=== PATIENT | female | born 1995 | race Caucasian/White ===

== ENCOUNTER → 2022-10-03 | Outpatient (CLI) | payer OTHER ==
[~2022-10-03] MED LIST: HYDACE5 PO; IBUP600 PO; PENVK500 PO; PRENATAL TABLE1 EAC9 PO; RXHYDACE PO; [UNRECOGNIZED DRUG - OTHER]; [UNRECOGNIZED DRUG - REMARK]
[2022-10-03 13:03] LABS: BASOPHILS ABSOLUTE AUTO 0.03 K/mm3 (0.00-0.23); BASOPHILS PERCENT AUTO 0 % (0-2); EOSINOPHILS ABSOLUTE AUTO 0.09 K/mm3 (0.00-0.68); EOSINOPHILS PERCENT AUTO 1 % (0-6); Hematocrit 41.9 % (33.0-51.0); Hemoglobin 14.6 g/dL (11.5-16.0); IMMATURE GRAN ABSOLUTE AUTO 0.03 K/mm3 (0.00-0.10); IMMATURE GRAN PERCENT AUTO 0 % (0-1); LYMPHOCYTES ABSOLUTE AUTO 2.18 K/mm3 (0.84-5.20); LYMPHOCYTES PERCENT AUTO 22 % (21-46); MONOCYTES ABSOLUTE AUTO 0.66 K/mm3 (0.16-1.47); MONOCYTES PERCENT AUTO 7 % (4-13); Mean Corpuscular HGB 31.8 pg (26.0-34.0); Mean Corpuscular HGB Conc 34.8 g/dL (31.5-36.5); Mean Corpuscular Volume 91 fL (80-100); Mean Platelet Volume 9.2 fL (9.1-12.4); NEUTROPHILS ABSOLUTE AUTO 6.76 K/mm3 (1.96-9.15); NEUTROPHILS PERCENT AUTO 69 % (41-73); Platelet Count 307 K/mm3 (150-400); RDW Coefficient Variation 12.2 % (11.7-14.2); RDW Standard Deviation 40.6 fL (35.1-46.3); Red Blood Cell Count 4.59 M/mm3 (3.80-5.20); White Blood Cell Count 9.75 K/mm3 (4.00-11.30)
[2022-10-03 13:13] LABS: Albumin, Blood 3.8 g/dL (3.4-5.0); Albumin/Globulin Ratio 1.2 (0.8-1.8); Bilirubin, Total 0.8 mg/dL (0.1-1.0); Bun/Creatinine Ratio 13.6 (12.0-20.0); Calcium, Blood 8.7 mg/dL (8.5-10.1); Creatinine, Blood 0.88 mg/dL (0.40-1.00); Globulin, Blood 3.1 g/dL (2.2-4.0); Potassium, Blood 3.8 mmol/L (3.5-5.5); Total Protein, Blood 6.9 g/dL (6.4-8.2)
== END | disposition home or self-care (01) ==
LOC: LAB 12:59 → LAB SHORT 12:59
PROVIDERS: Chiropractor
DX: R07.89 Other chest pain (principal)
CPT/HCPCS: 80053; 84443; 84484; 85025; 85379

== ENCOUNTER 2023-02-03 11:53 | Emergency (ER) | payer OTHER ==
[~2023-02-03] VITALS: Ht 172.7 cm; Wt 62.1 kg
[2023-02-03 12:49] VITALS: BP 130/93
[2023-02-03 13:15] LABS: BASOPHILS ABSOLUTE AUTO 0.04 K/mm3 (0.00-0.23); BASOPHILS PERCENT AUTO 0 % (0-2); EOSINOPHILS ABSOLUTE AUTO 0.03 K/mm3 (0.00-0.68); EOSINOPHILS PERCENT AUTO 0 % (0-6); Hematocrit 44.9 % (33.0-51.0); Hemoglobin 16.1 g/dL (11.5-16.0); IMMATURE GRAN ABSOLUTE AUTO 0.07 K/mm3 (0.00-0.10); IMMATURE GRAN PERCENT AUTO 0 % (0-1); LYMPHOCYTES ABSOLUTE AUTO 1.77 K/mm3 (0.84-5.20); LYMPHOCYTES PERCENT AUTO 10 % (21-46); MONOCYTES ABSOLUTE AUTO 1.03 K/mm3 (0.16-1.47); MONOCYTES PERCENT AUTO 6 % (4-13); Mean Corpuscular HGB 31.6 pg (26.0-34.0); Mean Corpuscular HGB Conc 35.9 g/dL (31.5-36.5); Mean Corpuscular Volume 88 fL (80-100); Mean Platelet Volume 9.4 fL (9.1-12.4); NEUTROPHILS PERCENT AUTO 84 % (41-73); Platelet Count 361 K/mm3 (150-400); RDW Coefficient Variation 11.8 % (11.7-14.2); RDW Standard Deviation 38.1 fL (35.1-46.3); White Blood Cell Count 18.14 K/mm3 (4.00-11.30)
[2023-02-03 13:54] LABS: Albumin, Blood 4.2 g/dL (3.4-5.0); Albumin/Globulin Ratio 1.2 (0.8-1.8); Bilirubin, Total 1.1 mg/dL (0.1-1.0); Bun/Creatinine Ratio 14.8 (12.0-20.0); Calcium, Blood 9.4 mg/dL (8.5-10.1); Creatinine, Blood 0.74 mg/dL (0.40-1.00); Globulin, Blood 3.5 g/dL (2.2-4.0); Potassium, Blood 3.7 mmol/L (3.5-5.5); Total Protein, Blood 7.7 g/dL (6.4-8.2)
[2023-02-03 15:38] LABS: Source, Urine Clean Catch
[2023-02-03 15:42] LABS: Appearance, Urine Clear (Clear); Bilirubin, Urine Neg (Neg); Blood, Urine Neg (Neg); Color, Urine Yellow (P-Yellow); Glucose Qualitative, Urine Neg (Neg); Ketones, Urine 4+ (Neg); Leukocyte Esterase, Urine Neg (Neg); Nitrite, Urine Neg (Neg); Protein, Urine 1+ (Neg); Specific Gravity, Urine 1.015 (1.003-1.022); Urobilinogen, Urine NORM (Normal); pH, Urine 6.5 (5.0-8.0)
[2023-02-03] MEDS ORDERED: DICLEGIS DR 101 EAC1 PO (18:42)
[2023-02-03] MEDS ORDERED: BENADRYL25 MG PO (18:42)
[2023-02-03] MEDS ORDERED: METO10 PO (18:42)
== END 2023-02-03 18:56 | disposition home or self-care (01) ==
LOC: ER 11:53
PROVIDERS: Student in an Organized Health Care Education/Training Program
DX: O21.9 Vomiting of pregnancy, unspecified (principal); O99.891 Other specified diseases and conditions complicating pregnancy; R10.13 Epigastric pain; Z3A.01 Less than 8 weeks gestation of pregnancy
CPT/HCPCS: 76705; 76801; 76817; 80053; 83690; 84702; 85025; 96361; 96374; 96375; 99284-25; A9270; J1200; J2405; J2765; J7030

== ENCOUNTER 2023-04-07 13:57 | Emergency (ER) | payer OTHER ==
[~2023-04-07] VITALS: Ht 172.7 cm; Wt 63.5 kg
[~2023-04-07 13:57] MED LIST changes: +BENADRYL25 MG PO; +DICLEGIS DR 101 EAC1 PO; +METO10 PO
[2023-04-07] MEDS ORDERED: Phenergan25 M1 PO (14:08)
[2023-04-07 14:29] LABS: BASOPHILS ABSOLUTE AUTO 0.03 K/mm3 (0.00-0.23); BASOPHILS PERCENT AUTO 0 % (0-2); EOSINOPHILS ABSOLUTE AUTO 0.03 K/mm3 (0.00-0.68); EOSINOPHILS PERCENT AUTO 0 % (0-6); Hematocrit 42.7 % (33.0-51.0); Hemoglobin 14.8 g/dL (11.5-16.0); IMMATURE GRAN PERCENT AUTO 1 % (0-1); LYMPHOCYTES ABSOLUTE AUTO 1.04 K/mm3 (0.84-5.20); LYMPHOCYTES PERCENT AUTO 6 % (21-46); MONOCYTES ABSOLUTE AUTO 0.58 K/mm3 (0.16-1.47); MONOCYTES PERCENT AUTO 4 % (4-13); Mean Corpuscular HGB 31.4 pg (26.0-34.0); Mean Corpuscular HGB Conc 34.7 g/dL (31.5-36.5); Mean Corpuscular Volume 91 fL (80-100); Mean Platelet Volume 9.8 fL (9.1-12.4); NEUTROPHILS ABSOLUTE AUTO 14.83 K/mm3 (1.96-9.15); NEUTROPHILS PERCENT AUTO 89 % (41-73); Platelet Count 269 K/mm3 (150-400); RDW Coefficient Variation 12.1 % (11.7-14.2); RDW Standard Deviation 40.4 fL (35.1-46.3); Red Blood Cell Count 4.72 M/mm3 (3.80-5.20); White Blood Cell Count 16.61 K/mm3 (4.00-11.30)
[2023-04-07 15:03] LABS: Source, Urine Clean Catch
[2023-04-07 15:06] LABS: Appearance, Urine Clear (Clear); Bilirubin, Urine Neg (Neg); Blood, Urine Neg (Neg); Color, Urine Yellow (P-Yellow); Glucose Qualitative, Urine Neg (Neg); Ketones, Urine Neg (Neg); Leukocyte Esterase, Urine Neg (Neg); Nitrite, Urine Neg (Neg); Protein, Urine Neg (Neg); Specific Gravity, Urine 1.015 (1.003-1.022); Urobilinogen, Urine NORM (Normal); pH, Urine 6.5 (5.0-8.0)
[2023-04-07 15:20] LABS: Albumin, Blood 3.4 g/dL (3.4-5.0); Albumin/Globulin Ratio 0.9 (0.8-1.8); Bilirubin, Total 0.5 mg/dL (0.1-1.0); Bun/Creatinine Ratio 10.5 (12.0-20.0); Calcium, Blood 8.6 mg/dL (8.5-10.1); Creatinine, Blood 0.67 mg/dL (0.40-1.00); Globulin, Blood 3.6 g/dL (2.2-4.0); Potassium, Blood 4.1 mmol/L (3.5-5.5)
[2023-04-07] MEDS ORDERED: ONDA4ODT MM (16:00)
[2023-04-07] MEDS ORDERED: PROM25 PO (16:00)
[2023-04-07 16:17] VITALS: BP 101/78
== END 2023-04-07 16:21 | disposition home or self-care (01) ==
LOC: ER 13:57
PROVIDERS: Student in an Organized Health Care Education/Training Program
DX: O26.892 Other specified pregnancy related conditions, second trimester (principal); R10.2 Pelvic and perineal pain; Z3A.15 15 weeks gestation of pregnancy
CPT/HCPCS: 76815; 80053; 81003; 83690; 84702; 85025; 96361; 96374; 99284-25; J2405; J7030

== ENCOUNTER 2023-09-29 05:51 | Inpatient (IN) | payer OTHER ==
[2023-09-29] VITALS (8 sets, daily range): BP systolic 119–140; BP diastolic 74–88
[~2023-09-29] VITALS: Ht 175.3 cm; Wt 79.0 kg
[~2023-09-29 05:51] MED LIST changes: +ONDA4ODT MM; +PROM25 PO; +Phenergan25 M1 PO
[2023-09-29] MEDS ORDERED: Ondansetron HCl 2 MG / ML 2ML Vial IV PRN (07:15)
[2023-09-29] MEDS ORDERED: Bupivacaine HCl 2.5 MG/ML 10ML P/F Injection XX SCH (07:15)
[2023-09-29] MEDS ORDERED: LR Oxytocin 20 Units 1,000 ML IV SCH (07:15)
[2023-09-29] MEDS ORDERED: Misoprostol 200 MCG Tab PR SCH (07:15)
[2023-09-29] MEDS ORDERED: ePHEDrine Sulfate 50 MG/ML 1ML Injection XX PRN (07:15)
[2023-09-29] MEDS ORDERED: Lactated Ringer's 1,000 ML IV SCH ×2 (07:15)
[2023-09-29] MEDS ORDERED: Methylergonovine Maleate 0.2MG / ML 1ML Amp IM SCH (07:15)
[2023-09-29] MEDS ORDERED: Castor Oil 59.146 ML BTL TOP SCH (07:15)
[2023-09-29] MEDS ORDERED: FentaNYL Citrate 50 MCG/ML 2 ML Injection IV PRN (07:15)
[2023-09-29] MEDS ORDERED: Bupivacaine 0.5% HCl 5 MG/ML 30MLVIAL XX SCH (07:15)
[2023-09-29] MEDS ORDERED: FentaNYL 2mcg/ml-Bup 0.1% Epd 250 ML EPI PRN (07:15)
[2023-09-29] MEDS ORDERED: Lactated Ringer's 1,000 ML IV PRN (07:15)
[2023-09-29] MEDS ORDERED: Lidocaine HCl 1% 30 ML SDV XX SCH (07:15)
[2023-09-29] MEDS ORDERED: Calcium Carbonate 500 MG Tab Chew PO PRN (07:15)
[2023-09-29] MEDS ORDERED: Oxytocin 10 Unit / ML Vial IM SCH (07:15)
[2023-09-29] MEDS ORDERED: Acetaminophen 500 MG Tab PO PRN (07:20)
[2023-09-29] MEDS ORDERED: Calcium Carbon500 MG PO (07:46)
[2023-09-29 08:03] LABS: BASOPHILS ABSOLUTE AUTO 0.04 K/mm3 (0.00-0.23); BASOPHILS PERCENT AUTO 0 % (0-2); EOSINOPHILS ABSOLUTE AUTO 0.09 K/mm3 (0.00-0.68); EOSINOPHILS PERCENT AUTO 1 % (0-6); Hematocrit 37.4 % (33.0-51.0); Hemoglobin 12.7 g/dL (11.5-16.0); IMMATURE GRAN ABSOLUTE AUTO 0.11 K/mm3 (0.00-0.10); IMMATURE GRAN PERCENT AUTO 1 % (0-1); LYMPHOCYTES ABSOLUTE AUTO 1.86 K/mm3 (0.84-5.20); LYMPHOCYTES PERCENT AUTO 13 % (21-46); MONOCYTES ABSOLUTE AUTO 0.86 K/mm3 (0.16-1.47); MONOCYTES PERCENT AUTO 6 % (4-13); Mean Corpuscular HGB 29.7 pg (26.0-34.0); Mean Corpuscular Volume 87 fL (80-100); Mean Platelet Volume 11.2 fL (9.1-12.4); NEUTROPHILS ABSOLUTE AUTO 11.39 K/mm3 (1.96-9.15); NEUTROPHILS PERCENT AUTO 79 % (41-73); Platelet Count 291 K/mm3 (150-400); RDW Coefficient Variation 13.9 % (11.7-14.2); RDW Standard Deviation 43.6 fL (35.1-46.3); Red Blood Cell Count 4.28 M/mm3 (3.80-5.20); White Blood Cell Count 14.35 K/mm3 (4.00-11.30)
[2023-09-29] MEDS ORDERED: Promethazine HCl 25 MG Tab PO ONE (12:40)
[2023-09-29] MEDS ORDERED: Morphine Sulfate 10 MG/ML 1MLSYR IM ONE (12:40)
[2023-09-29] MEDS ORDERED: Morphine Sulfate 10 MG/ML 1MLSYR IM SCH (21:00)
[2023-09-29] MEDS ORDERED: Promethazine HCl 25 MG Tab PO SCH (21:00)
== END 2023-09-29 21:31 | disposition home or self-care (01) | DRG 833 ==
LOC: OBS 05:51 → BC 05:51 → OBS 07:11 → BC 07:12
PROVIDERS: ADMIT Advanced Practice Midwife
PROC: 4A1HXCZ Monitoring of Products of Conception, Cardiac Rate, External Approach (ICD-10-PCS; principal; 2023-09-29)
DX: O47.1 False labor at or after 37 completed weeks of gestation (principal); Z3A.39 39 weeks gestation of pregnancy
CPT/HCPCS: 36415; 85025; 86850; 86900; 86901; A9270; J2270; J2405; J3010

== ENCOUNTER 2023-09-30 03:17 | Inpatient (IN) | payer OTHER ==
[~2023-09-30] VITALS: Ht 172.7 cm; Wt 79.0 kg
[2023-09-30] VITALS (42 sets, daily range): BP systolic 105–159; BP diastolic 55–107
[~2023-09-30 03:17] MED LIST changes: +Calcium Carbon500 MG PO
[2023-09-30] MEDS ORDERED: FentaNYL Citrate 50 MCG/ML 2 ML Injection IV PRN (05:40)
[2023-09-30] MEDS ORDERED: Bupivacaine 0.5% HCl 5 MG/ML 30MLVIAL XX SCH (08:00)
[2023-09-30] MEDS ORDERED: Misoprostol 200 MCG Tab PR SCH (08:00)
[2023-09-30] MEDS ORDERED: FentaNYL 2mcg/ml-Bup 0.1% Epd 250 ML EPI PRN (08:00)
[2023-09-30] MEDS ORDERED: Oxytocin 10 Unit / ML Vial IM SCH (08:00)
[2023-09-30] MEDS ORDERED: Lactated Ringer's 1,000 ML IV PRN (08:00)
[2023-09-30] MEDS ORDERED: Bupivacaine HCl 2.5 MG/ML 10ML P/F Injection XX SCH (08:00)
[2023-09-30] MEDS ORDERED: Methylergonovine Maleate 0.2MG / ML 1ML Amp IM SCH (08:00)
[2023-09-30] MEDS ORDERED: LR Oxytocin 20 Units 1,000 ML IV SCH (08:00)
[2023-09-30] MEDS ORDERED: ePHEDrine Sulfate 50 MG/ML 1ML Injection XX PRN (08:00)
[2023-09-30] MEDS ORDERED: Lactated Ringer's 1,000 ML IV SCH ×2 (08:00)
[2023-09-30] MEDS ORDERED: Lidocaine HCl 1% 30 ML SDV XX SCH (08:00)
[2023-09-30] MEDS ORDERED: Castor Oil 59.146 ML BTL TOP SCH (08:00)
[2023-09-30 08:15] LABS: BASOPHILS ABSOLUTE AUTO 0.06 K/mm3 (0.00-0.23); BASOPHILS PERCENT AUTO 0 % (0-2); EOSINOPHILS ABSOLUTE AUTO 0.06 K/mm3 (0.00-0.68); EOSINOPHILS PERCENT AUTO 0 % (0-6); Hematocrit 37.9 % (33.0-51.0); Hemoglobin 12.9 g/dL (11.5-16.0); IMMATURE GRAN ABSOLUTE AUTO 0.15 K/mm3 (0.00-0.10); IMMATURE GRAN PERCENT AUTO 1 % (0-1); LYMPHOCYTES ABSOLUTE AUTO 1.43 K/mm3 (0.84-5.20); LYMPHOCYTES PERCENT AUTO 7 % (21-46); MONOCYTES PERCENT AUTO 6 % (4-13); Mean Corpuscular HGB 29.6 pg (26.0-34.0); Mean Corpuscular Volume 87 fL (80-100); Mean Platelet Volume 12.1 fL (9.1-12.4); NEUTROPHILS ABSOLUTE AUTO 18.24 K/mm3 (1.96-9.15); NEUTROPHILS PERCENT AUTO 86 % (41-73); Platelet Count 306 K/mm3 (150-400); RDW Standard Deviation 44.6 fL (35.1-46.3); Red Blood Cell Count 4.36 M/mm3 (3.80-5.20); White Blood Cell Count 21.14 K/mm3 (4.00-11.30)
[2023-09-30] MEDS ORDERED: Calcium Carbonate 500 MG Tab Chew PO PRN ×2 (08:55→15:40)
[2023-09-30] MEDS ORDERED: Ondansetron HCl 2 MG / ML 2ML Vial IV PRN (09:00)
[2023-10-01] VITALS (20 sets, daily range): BP systolic 102–139; BP diastolic 56–87
[2023-10-01] MEDS ORDERED: Pantoprazole Sodium 40 MG Injection IV ONE (01:00)
[2023-10-01] MEDS ORDERED: Ampicillin Sod 2,000 MG in NS 100 ML IV SCH (11:00)
[2023-10-01] MEDS ORDERED: Misoprostol 200 MCG Tab PO PRN (12:45)
[2023-10-01] MEDS ORDERED: Lactated Ringer's 1,000 ML IV SCH (12:50)
[2023-10-01] MEDS ORDERED: Methylergonovine Maleate 0.2MG / ML 1ML Amp IM PRN (12:50)
[2023-10-01] MEDS ORDERED: Witch Hazel/Glycerin PADS TOP PRN (12:50)
[2023-10-01] MEDS ORDERED: Ibuprofen 400 MG Tab PO PRN (12:50)
[2023-10-01] MEDS ORDERED: LR Oxytocin 20 Units 1,000 ML IV SCH (12:50)
[2023-10-01] MEDS ORDERED: Measles/Mumps/Rubella Vaccine 0.5 ML Vial SC SCH (12:50)
[2023-10-01] MEDS ORDERED: Acetaminophen 325 MG TABLET PO PRN (12:55)
[2023-10-01] MEDS ORDERED: Lanolin Cream TOP PRN (12:55)
[2023-10-01] MEDS ORDERED: Benzocaine Topical Anesthetic Spray 60GM TOP PRN (12:55)
[2023-10-01] MEDS ORDERED: Diphth,Pertuss(Acell),Tet Vac 0.5 ML VIAL IM SCH (12:55)
[2023-10-01] MEDS ORDERED: Docusate Sodium 100 MG Cap PO PRN (12:55)
[2023-10-01] MEDS ORDERED: OxyCODONE 5 mg/Acetamin 325 mg TABLET PO PRN (12:55)
[2023-10-01] MEDS ORDERED: Ketorolac Tromethamine 30mg Vial IV ONE (13:00)
[2023-10-01] MEDS ORDERED: Ketorolac Tromethamine 30mg Vial IV PRN (13:00)
--- NOTE | 2023-10-01 14:02 | NUR ---
1213- DR PINK AT BEDSIDE, CPAP AT 21%, TRANSPORTED TO NURSERY VIA ST[facility]ILET
[2023-10-02] VITALS: BP 110/68
[2023-10-02 03:02] VITALS: BP 117/58
[2023-10-02] MEDS ORDERED: Prenatal Vit/FE Fumarate/FA 1 Tab PO SCH (09:00)
[2023-10-02 09:06] LABS: Hematocrit 33.5 % (33.0-51.0); Hemoglobin 11.3 g/dL (11.5-16.0); Mean Corpuscular HGB 29.7 pg (26.0-34.0); Mean Corpuscular HGB Conc 33.7 g/dL (31.5-36.5); Mean Corpuscular Volume 88 fL (80-100); Mean Platelet Volume 10.8 fL (9.1-12.4); Platelet Count 242 K/mm3 (150-400); RDW Coefficient Variation 14.6 % (11.7-14.2); RDW Standard Deviation 46.5 fL (35.1-46.3); White Blood Cell Count 20.32 K/mm3 (4.00-11.30)
[2023-10-02 10:00] VITALS: BP 124/75
[2023-10-02 12:25] VITALS: BP 123/78
[2023-10-02] MEDS ORDERED: FLU VACC QS2023-24(6MOS UP)/PF 60 MCG/0.5 ML SYRINGE IM SCH (12:30)
[2023-10-02] MEDS ORDERED: IBUP800 PO (13:59)
--- NOTE | 2023-10-02 14:40 | NUR ---
Printed d/c instructions reviewed by pt, she denies questions or needing additional teaching at this time. Denies other needs/concerns. Verbalized understanding of instructions and follow up. No acute changes t/o shift. Will d/c home to care of SO.
== END 2023-10-02 14:45 | disposition home or self-care (01) | DRG 807 ==
LOC: OBS 03:17 → BC 03:18 → OBS 07:55 → BC 07:56
PROVIDERS: ADMIT Advanced Practice Midwife
PROC: 10E0XZZ Delivery of Products of Conception, External Approach (ICD-10-PCS; principal; 2023-10-01)
PROC: 10907ZC Drainage of Amniotic Fluid, Therapeutic from Products of Conception, Via Natural or Artificial Opening (ICD-10-PCS; 2023-10-01)
PROC: 10H07YZ Insertion of Other Device into Products of Conception, Via Natural or Artificial Opening (ICD-10-PCS; 2023-10-01)
DX: O63.1 Prolonged second stage (of labor) (principal); Z37.0 Single live birth; O76 Abnormality in fetal heart rate and rhythm complicating labor and delivery; Z3A.39 39 weeks gestation of pregnancy
CPT/HCPCS: 36415; 51702; 59025; 85025; 85027; 86850; 86900; 86901; 86923; 90471; 90707; A9270; C9113; J0290; J1885; J2405; J2590; J3010; J7120

== ENCOUNTER 2024-06-02 14:43 | Inpatient (IN) | payer OTHER ==
[~2024-06-02] VITALS: Ht 172.7 cm; Wt 62.0 kg
[~2024-06-02 14:43] MED LIST changes: +IBUP800 PO
[2024-06-02] MEDS ORDERED: Ibuprofen 600 MG Tab PO ONE (15:05)
[2024-06-02] MEDS ORDERED: NS 1,000 ML IV SCH ×2 (15:10→17:40)
[2024-06-02 15:27] LABS: Hematocrit 42.5 % (33.0-51.0); Hemoglobin 14.9 g/dL (11.5-16.0); Mean Corpuscular HGB 31.2 pg (26.0-34.0); Mean Corpuscular HGB Conc 35.1 g/dL (31.5-36.5); Mean Corpuscular Volume 89 fL (80-100); Mean Platelet Volume 9.5 fL (9.1-12.4); Platelet Count 335 K/mm3 (150-400); RDW Coefficient Variation 12.7 % (11.7-14.2); RDW Standard Deviation 41.8 fL (35.1-46.3); Red Blood Cell Count 4.78 M/mm3 (3.80-5.20); White Blood Cell Count 22.28 K/mm3 (4.00-11.30)
[2024-06-02 15:53] LABS: BAND PERCENT MAN 7 % (0-8); BASOPHILS PERCENT MAN 0 % (0-2); EOSINOPHILS PERCENT MAN 0 % (0-6); LYMPHOCYTES ABSOLUTE MAN 1.11 K/mm3 (0.84-5.20); LYMPHOCYTES PERCENT MAN 5 % (21-46); MONOCYTES ABSOLUTE MAN 0.44 K/mm3 (0.16-1.47); MONOCYTES PERCENT MAN 2 % (4-13); NEUTROPHILS ABSOLUTE MAN 20.72 K/mm3 (1.96-9.15); SEG NEUTROPHILS PERCENT MAN 86 % (41-73); TOTAL CELLS COUNTED 100
[2024-06-02 16:04] LABS: Albumin, Blood 4.1 g/dL (3.4-5.0); Albumin/Globulin Ratio 1.1 (0.8-1.8); Bilirubin, Total 0.9 mg/dL (0.1-1.0); Bun/Creatinine Ratio 13.5 (12.0-20.0); Calcium, Blood 8.9 mg/dL (8.5-10.1); Creatinine, Blood 0.82 mg/dL (0.40-1.00); Globulin, Blood 3.6 g/dL (2.2-4.0); Potassium, Blood 3.7 mmol/L (3.5-5.5); Total Protein, Blood 7.7 g/dL (6.4-8.2)
[2024-06-02 16:30] LABS: Source, Urine Clean Catch
[2024-06-02 16:47] LABS: Appearance, Urine Clear (Clear); Bilirubin, Urine Neg (Neg); Blood, Urine Neg (Neg); Color, Urine Yellow (P-Yellow); Glucose Qualitative, Urine Neg (Neg); Ketones, Urine 3+ (Neg); Leukocyte Esterase, Urine Neg (Neg); Nitrite, Urine Neg (Neg); Protein, Urine Neg (Neg); Specific Gravity, Urine 1.015 (1.003-1.022); Urobilinogen, Urine NORM (Normal)
[2024-06-02 17:02] LABS: CORONAVIRUS COVID-19 AG Negative (NEGATIVE); INFLUENZA A AG Negative (NEGATIVE); INFLUENZA B AG Negative (NEGATIVE)
[2024-06-02] MEDS ORDERED: Acetaminophen 500 MG Tab PO ONE (17:05)
[2024-06-02] MEDS ORDERED: Ketorolac Tromethamine 30mg Vial IV ONE (17:05)
[2024-06-02] MEDS ORDERED: Acetaminophen 500 MG Tab PO PRN (19:35)
[2024-06-02] MEDS ORDERED: Ibuprofen 400 MG Tab PO PRN (19:35)
[2024-06-02 20:46] LABS: Adenovirus Not Detected (NOT DETECT); Bordetella pertussis Not Detected (NOT DETECT); Chlamydophila pneumoniae Not Detected (NOT DETECT); Coronavirus 229E Not Detected (NOT DETECT); Coronavirus HKU1 Not Detected (NOT DETECT); Coronavirus NL63 Not Detected (NOT DETECT); Coronavirus OC43 Not Detected (NOT DETECT); Human Metapneumovirus Not Detected (NOT DETECT); Human Rhinovirus/Enterovirus Not Detected (NOT DETECT); Influenza A/2009-H1 Not Detected (NOT DETECT); Influenza A/H1 Not Detected (NOT DETECT); Influenza A/H3 Not Detected (NOT DETECT); Influenza B Not Detected (NOT DETECT); Mycoplasma pneumoniae Not Detected (NOT DETECT); Parainfluenza Virus 1 Not Detected (NOT DETECT); Parainfluenza Virus 2 Not Detected (NOT DETECT); Parainfluenza Virus 3 Not Detected (NOT DETECT); Parainfluenza Virus 4 Detected (NOT DETECT); Respiratory Syncytial Virus Not Detected (NOT DETECT); SARS-Cov-2 (COVID-19), BioFire Not Detected (NOT DETECT)
[2024-06-02 21:32] VITALS: BP 98/65
[2024-06-03 03:50] VITALS: BP 107/73
--- NOTE | 2024-06-03 04:06 | NUR ---
SHIFT SUMMARY: IDANIA IS A&OX4. VSS, NO ACUTE EVENTS OVERNIGHT. SHE IS INDEPENDENT IN THE ROOM, TOLERATING PO INTAKE WELL, AND REPORTS RESOLUTION OF THE PINS AND NEEDLES SENSATION SHE WAS EXPERIENCING IN HER FEET, ALTHOUGH IT REMAINS PRESENT IN HER HANDS. IV TO RIGHT AC PATENT. SHE IS LYING IN BED WITH THE CALL LIGHT IN REACH, BED IN LOWEST POSITION. WILL GIVE REPORT TO DAY SHIFT RN.
[2024-06-03 05:04] LABS: BASOPHILS ABSOLUTE AUTO 0.05 K/mm3 (0.00-0.23); BASOPHILS PERCENT AUTO 0 % (0-2); EOSINOPHILS ABSOLUTE AUTO 0.39 K/mm3 (0.00-0.68); EOSINOPHILS PERCENT AUTO 3 % (0-6); Hematocrit 38.3 % (33.0-51.0); Hemoglobin 13.2 g/dL (11.5-16.0); IMMATURE GRAN ABSOLUTE AUTO 0.06 K/mm3 (0.00-0.10); IMMATURE GRAN PERCENT AUTO 0 % (0-1); LYMPHOCYTES ABSOLUTE AUTO 2.41 K/mm3 (0.84-5.20); LYMPHOCYTES PERCENT AUTO 16 % (21-46); MONOCYTES ABSOLUTE AUTO 1.27 K/mm3 (0.16-1.47); MONOCYTES PERCENT AUTO 8 % (4-13); Mean Corpuscular HGB 30.9 pg (26.0-34.0); Mean Corpuscular HGB Conc 34.5 g/dL (31.5-36.5); Mean Corpuscular Volume 90 fL (80-100); Mean Platelet Volume 9.8 fL (9.1-12.4); NEUTROPHILS ABSOLUTE AUTO 11.41 K/mm3 (1.96-9.15); NEUTROPHILS PERCENT AUTO 73 % (41-73); Platelet Count 274 K/mm3 (150-400); RDW Standard Deviation 42.8 fL (35.1-46.3); Red Blood Cell Count 4.27 M/mm3 (3.80-5.20); White Blood Cell Count 15.59 K/mm3 (4.00-11.30)
[2024-06-03 05:25] LABS: Albumin/Globulin Ratio 0.9 (0.8-1.8); Bilirubin, Total 0.8 mg/dL (0.1-1.0); Bun/Creatinine Ratio 13.2 (12.0-20.0); Calcium, Blood 8.3 mg/dL (8.5-10.1); Creatinine, Blood 0.76 mg/dL (0.40-1.00); Globulin, Blood 3.2 g/dL (2.2-4.0); Potassium, Blood 3.6 mmol/L (3.5-5.5); Total Protein, Blood 6.2 g/dL (6.4-8.2)
[2024-06-03 09:13] VITALS: BP 111/85
[2024-06-03] MEDS ORDERED: Ondansetron 4 MG TAB PO PRN (09:30)
[2024-06-03 17:03] VITALS: BP 117/80
--- NOTE | 2024-06-03 17:18 | NUR ---
SHIFT SUMMARY PT A&OX4, AMB IND, TOLERATING PO, VOIDING, AND HEADACHE/NAUSEA X1 MEDICATED PER EMAR. PT CONT TO BE TACHY T/O SHIFT. NO EVENTS ON TELE. PT ADMITS TO FEELING ANXIETY WHEN HR HIGH. NO OTHER ACUTE CHANGES. CALL LIGHT WITHIN REACH AND PT ABLE TO MAKE NEEDS KNOWN.
--- NOTE | 2024-06-03 18:47 | NUR ---
THIS RN NOTIFIED OF PT'S SVT TELE EVENT. NO NEW ORDERS AT THIS TIME.
[2024-06-03 19:40] VITALS: BP 132/84
[2024-06-04 03:50] VITALS: BP 133/118
--- NOTE | 2024-06-04 04:27 | NUR ---
SHIFT SUMMARY 28 YR F ADMITTED ON 06/02/24. FULL CODE. PT CONTINUES TO BE TACHY THROUGHOUT SHIFT. C/O SEVERE HEADACHE AND MEDICATED TWICE W/ TYLENOL AND ONCE W/ MOTRIN. PT STATES NO RELIEF. PT IS CRYING IN PAIN AND STATES THAT IT HAS MADE HER VOMIT AT LEAST ONCE. PUT IN CALL TO HOSPITALIST BUT HE WAS UNAVAILABLE AND OF THE TIME OF THIS NOTE HAS NOT CALLED BACK. WILL CONTINUE TO MONITOR. PT'S 9 MONTH OLD BABY IS IN THE ROOM WITH HER SHE IS . BEDSIDE CRIB IN ROOM.
[2024-06-04 05:08] LABS: BASOPHILS ABSOLUTE AUTO 0.02 K/mm3 (0.00-0.23); BASOPHILS PERCENT AUTO 0 % (0-2); EOSINOPHILS PERCENT AUTO 5 % (0-6); Hematocrit 38.1 % (33.0-51.0); Hemoglobin 13.2 g/dL (11.5-16.0); IMMATURE GRAN ABSOLUTE AUTO 0.05 K/mm3 (0.00-0.10); IMMATURE GRAN PERCENT AUTO 1 % (0-1); LYMPHOCYTES PERCENT AUTO 4 % (21-46); MONOCYTES ABSOLUTE AUTO 0.78 K/mm3 (0.16-1.47); MONOCYTES PERCENT AUTO 8 % (4-13); Mean Corpuscular HGB 30.9 pg (26.0-34.0); Mean Corpuscular HGB Conc 34.6 g/dL (31.5-36.5); Mean Corpuscular Volume 89 fL (80-100); Mean Platelet Volume 9.7 fL (9.1-12.4); NEUTROPHILS ABSOLUTE AUTO 8.67 K/mm3 (1.96-9.15); NEUTROPHILS PERCENT AUTO 83 % (41-73); Platelet Count 230 K/mm3 (150-400); RDW Coefficient Variation 12.8 % (11.7-14.2); RDW Standard Deviation 42.3 fL (35.1-46.3); Red Blood Cell Count 4.27 M/mm3 (3.80-5.20); White Blood Cell Count 10.42 K/mm3 (4.00-11.30)
[2024-06-04 06:56] LABS: Albumin, Blood 3.4 g/dL (3.4-5.0); Albumin/Globulin Ratio 0.9 (0.8-1.8); Bilirubin, Total 0.6 mg/dL (0.1-1.0); Bun/Creatinine Ratio 9.3 (12.0-20.0); Calcium, Blood 8.9 mg/dL (8.5-10.1); Creatinine, Blood 0.76 mg/dL (0.40-1.00); Globulin, Blood 3.6 g/dL (2.2-4.0); Potassium, Blood 3.6 mmol/L (3.5-5.5)
[2024-06-04] MEDS ORDERED: OxyCODONE HCL 5 MG TAB PO PRN (08:15)
[2024-06-04 08:26] VITALS: BP 113/85
[2024-06-04] MEDS ORDERED: SUMAtriptan Succinate 25 MG Tab PO PRN ×2 (12:15→13:55)
[2024-06-04 13:25] LABS: C-REACTIVE PROTEIN, EXT RANGE 5.73 mg/dL (0.000-0.300); Free Thyroxine 1.2 ng/dL (0.70-1.60); Phosphorus, Blood 3.1 mg/dL (2.5-4.9); Thyroid Stimulating Hormone 0.702 uIU/mL (0.360-4.800); Triiodothyronine, Free 1.93 pg/mL (2.18-3.98)
[2024-06-04] MEDS ORDERED: GuaiFENesin 600 MG TabCR PO SCH (14:00)
[2024-06-04 14:48] LABS: D-Dimer, Quantitative 0.37 mg/L FEU (0.00-0.52); International Normalized Ratio 1.12; Prothrombin Time Results 11.9 Sec (9.7-11.5)
[2024-06-04 15:20] LABS: U Amphetamine Screen Not Detected; U Barbituate Screen Not Detected; U Benzodiazapine Screen Not Detected; U Buprenorphine Screen Not Detected; U Cannabinoids Screen DETECTED; U Cocaine Screen Not Detected; U Methadone Screen Not Detected; U Methamphetamine Screen Not Detected; U Opiates Screen Not Detected; U Oxycodone Screen DETECTED; U Phencyclidine Screen Not Detected
[2024-06-04] MEDS ORDERED: Prochlorperazine Maleate 5 MG Tab PO PRN (18:40)
[2024-06-04 19:15] VITALS: BP 117/69
--- NOTE | 2024-06-04 19:20 | NUR ---
SUMMARY- PT A/O X4, INDEPENDANT IN ROOM. PT STARTED OUT THE DAY WITH SEVERE HEADACHE. IBUPROFEN AND TYLENOL NOT COVERING PAIN. STARTED OXYCODONE 5MG WITH MOD RELEIF OF DISCOMFORT. PT DESCRIBES PAIN IN HEAD, EXTENDING INTO SHOULDERS AND BACK. ENCOURAGED CLEAR LIQUIDS TODAY. TOOK IN GOOD AMOUNT. URINE MED YELLOW. TELE STARTED THIS AM RATE 140-160'S ST, CAME DOWN THE DAY PROGRESSED ST 100-110'S AFTER 1600. NEVER ANY SYMPTOMOLOGY WITH TACHYCARDIA. TEMP THIS AM. MULT TESTS RUN. STARTED ON MUCINEX HOPING TO BREAK UP SOME PHLEGM THAT WAS PRESENT ON CT. PT HAS STRONG PROD COUGH, STATES SHE IS CLEARING MOD AMOUNTS YELLOW/GREEN SPUTUM. MOM STATES BABY WENT HOME AROUND 1700 WITH THE DAD. WILL REPORT TO JOHN FERNANDO
[2024-06-04] MEDS ORDERED: OMEP20ER PO (22:22)
[2024-06-04] MEDS ORDERED: LAMO25 PO (22:26)
[2024-06-04] MEDS ORDERED: LAMO100 PO (22:27)
[2024-06-05 03:55] VITALS: BP 123/88
[2024-06-05 05:47] LABS: BASOPHILS ABSOLUTE AUTO 0.02 K/mm3 (0.00-0.23); BASOPHILS PERCENT AUTO 0 % (0-2); EOSINOPHILS ABSOLUTE AUTO 0.01 K/mm3 (0.00-0.68); EOSINOPHILS PERCENT AUTO 0 % (0-6); Hematocrit 39.2 % (33.0-51.0); Hemoglobin 13.7 g/dL (11.5-16.0); IMMATURE GRAN ABSOLUTE AUTO 0.04 K/mm3 (0.00-0.10); IMMATURE GRAN PERCENT AUTO 1 % (0-1); LYMPHOCYTES ABSOLUTE AUTO 0.72 K/mm3 (0.84-5.20); LYMPHOCYTES PERCENT AUTO 10 % (21-46); MONOCYTES ABSOLUTE AUTO 0.65 K/mm3 (0.16-1.47); MONOCYTES PERCENT AUTO 9 % (4-13); Mean Corpuscular HGB 30.6 pg (26.0-34.0); Mean Corpuscular HGB Conc 34.9 g/dL (31.5-36.5); Mean Corpuscular Volume 88 fL (80-100); NEUTROPHILS ABSOLUTE AUTO 5.73 K/mm3 (1.96-9.15); NEUTROPHILS PERCENT AUTO 80 % (41-73); Platelet Count 191 K/mm3 (150-400); RDW Coefficient Variation 12.8 % (11.7-14.2); RDW Standard Deviation 41.2 fL (35.1-46.3); Red Blood Cell Count 4.47 M/mm3 (3.80-5.20); White Blood Cell Count 7.17 K/mm3 (4.00-11.30)
[2024-06-05] MEDS ORDERED: Benzonatate 100 MG Cap PO PRN (05:55)
[2024-06-05] MEDS ORDERED: Ipratropium/Albuterol SulF 2.5-0.5MG/3 ML Amp INH PRN (06:10)
[2024-06-05 06:20] LABS: Albumin, Blood 3.2 g/dL (3.4-5.0); Albumin/Globulin Ratio 0.8 (0.8-1.8); Bilirubin, Total 0.4 mg/dL (0.1-1.0); Bun/Creatinine Ratio 7.1 (12.0-20.0); Calcium, Blood 8.6 mg/dL (8.5-10.1); Creatinine, Blood 0.85 mg/dL (0.40-1.00); Globulin, Blood 3.9 g/dL (2.2-4.0); Potassium, Blood 3.3 mmol/L (3.5-5.5); Total Protein, Blood 7.1 g/dL (6.4-8.2)
--- NOTE | 2024-06-05 06:35 | NUR ---
SHIFT SUMMARY: Pt is admitted for SIRS and is a full code. Is alert and able to make needs known. ADLs have been IND. pain has been managed with PRN medication. Elver reports sinus tach in the 100s with no events. Nausea reported and was treated with PRN medication. Reported one emisis to this LN. also stated she was short of breath. Noted tight breath sounds with expiratory wheeze. Wet cough noted during assessment. Reported to MD he gave orders for teslon pearls TID PRN and a respiratory assessment.
[2024-06-05 08:21] VITALS: BP 169/80
[2024-06-05 08:23] VITALS: BP 104/63
--- NOTE | 2024-06-05 10:05 | NUR ---
TELEMETRY CALLED TO NOTIFIY PATIENT TACHYCARDIC WITH HEART RATE IN 130s-140s. MD NOTIFIED VIA TELEPHONE, NO NEW ORDERS AT THIS TIME. PLAN TO HAVE ECHOCARDIOGRAM LATER TODAY. PATIENT STATES FEELS "HEART RACING" WAS ALSO UP CHANGING HER CLOTHES AT THE TIME OF EVENT. PATIENT STATES NAUEASEA AND HEADACHE HAVE IMPROVED, NO PRNs ADMINISTERED THIS SHIFT THUS FAR. PATIENT COMPLAINING OF "HOT FLASHES" AND HAS HAD TWO EVENTS OF SWEATING EXCESSIVELY AND NEEDING TO CHANGE HER CLOTHES TODAY.
[2024-06-05 15:08] VITALS: BP 115/83
[2024-06-05] MEDS ORDERED: Potassium Chloride 10 Meq Tablet SA PO ONE (15:15)
[2024-06-05] MEDS ORDERED: SUMAtriptan succinate 50 MG Tab PO PRN (16:10)
[2024-06-05] MEDS ORDERED: PredniSONE 20 MG Tab PO ONE (16:10)
[2024-06-05] MEDS ORDERED: Propranolol HCL 20 MG TAB PO SCH (18:00)
--- NOTE | 2024-06-05 18:25 | NUR ---
SHIFT SUMMARY PATIENT A/OX4, ABLE TO MAKE NEEDS KNOWN. PLEASANT AND COOPERATIVE WITH STAFF, INTERMITTENTLY TEARFUL. PATIENT COMPLAINING OF "HOT FLASHES" THIS MORNING AND PATIENT DIAPHORETIC, NEEDING TO CHANGE HER CLOTHING TWICE. AFEBRILE THIS MORNING. ECHOCARDIOGRAM AND MRI OF LUMBAR SPINE OBTAINED THIS SHIFT. TELEMETRY IN PLACE, TELEMTRY CALLED THIS MORNING TO NOTIFY OF HEART RATE IN 130s-140s, NOTIFIED. PATIENT WAS GETTING DRESSED AT THE TIME OF EVENT. PATIENT ALSO STATES HAD EPISODE OF URINARY INCONTINENCE THIS MORNING. THIS EVENING PATIENT COMPLAINING OF NAUSEA AND MIGRAINE AFTER MRI COMPLETED, PRN ZOFRAN AND SUMATRIPTAN ADMINISTERED PER JUL. LATER IN THE EVENING PATIENT COMPLAINING OF LOWER BACK PAIN 01/03, OXYCODONE ADMINISTERED PER JUL. PATIENT STARTED ON PREDNISONE AND PROPANOLOL THIS SHIFT. ALSO ADMINISTERED K+ REPLACEMENT PER JUL. FAMILY AND FRIENDS AT BEDSIDE INTERMITTENTLY THROUGHOUT THE DAY AND PATIENT WITH 9 MO OLD SON AT BEDSIDE, HOSPITAL CRIB HAS BEEN PROVIDED. NO OTHER CONCERNS AT THIS TIME.
[2024-06-05 18:52] LABS: HIV 1,2 COMBO ANTIGEN/ANTIBODY Negative (Negative)
[2024-06-05 19:10] VITALS: BP 113/78
[2024-06-05] MEDS ORDERED: Lactated Ringer's 1,000 ML IV SCH (19:15)
[2024-06-05 19:38] LABS: ANTI-NUCLEAR AB ANA,IGG ELISA None Detected (None Detected)
[2024-06-06 01:26] LABS: EBV QNT BY NAAT, PL LOG IU/ML Not Detected; EBV QNT BY NAAT, PLASMA INTERP Not Detected (Not Detected); EBV QNT BY NAAT, PLASMA IU/ML Not Detected
[2024-06-06 02:01] VITALS: BP 106/73
--- NOTE | 2024-06-06 05:43 | NUR ---
WEEKLY SUMMARY PT ALERT ORIENTED ABLE TO VERBALIZE NEEDS CALLS OUT APPROPRIATELY. NO C/O PAIN NAUSEA OR VOMITING THIS SHIFT. VSS ON RA SATTING AT 96%. SHE HAD A ORDER FOR LR X 2 LITERS BUT SHE ONLY RECEIVED 1 LITER R/T SHE REFUSED THE OTHER LITER. SHES DRINKING FLUIDS AND URINATING WELL. REMAINS ON TELEMETRY AT [facility] AT A RATE OF 67. SHE HAS HER BABY IN THE ROOM AND SHE TENDS TO HER BABY. LUNG SOUNDS WITH WHEEZES BILAT. NO TEMP THIS SHIFT SHE WAS 98.7 AND 96.8. SHE AMBULATES IN HER ROOM AD KALIA. RESTING IN BED AT THIS TIME WITH CALL LIGHT IN REACH
[2024-06-06 06:45] LABS: Bun/Creatinine Ratio 10.7 (12.0-20.0); Calcium, Blood 9.2 mg/dL (8.5-10.1); Creatinine, Blood 0.65 mg/dL (0.40-1.00); Potassium, Blood 4.3 mmol/L (3.5-5.5)
[2024-06-06 07:35] VITALS: BP 108/68
[2024-06-06 12:11] VITALS: BP 108/73; BP 109/83
[2024-06-06 12:12] VITALS: BP 119/70
[2024-06-06 12:17] LABS: BASOPHILS ABSOLUTE AUTO 0.01 K/mm3 (0.00-0.23); BASOPHILS PERCENT AUTO 0 % (0-2); EOSINOPHILS ABSOLUTE AUTO 0.01 K/mm3 (0.00-0.68); EOSINOPHILS PERCENT AUTO 0 % (0-6); Hematocrit 38.6 % (33.0-51.0); Hemoglobin 13.3 g/dL (11.5-16.0); IMMATURE GRAN ABSOLUTE AUTO 0.02 K/mm3 (0.00-0.10); IMMATURE GRAN PERCENT AUTO 0 % (0-1); LYMPHOCYTES ABSOLUTE AUTO 1.52 K/mm3 (0.84-5.20); LYMPHOCYTES PERCENT AUTO 19 % (21-46); MONOCYTES ABSOLUTE AUTO 0.54 K/mm3 (0.16-1.47); MONOCYTES PERCENT AUTO 7 % (4-13); Mean Corpuscular HGB 30.9 pg (26.0-34.0); Mean Corpuscular HGB Conc 34.5 g/dL (31.5-36.5); Mean Corpuscular Volume 90 fL (80-100); Mean Platelet Volume 10.1 fL (9.1-12.4); NEUTROPHILS ABSOLUTE AUTO 5.81 K/mm3 (1.96-9.15); NEUTROPHILS PERCENT AUTO 74 % (41-73); Platelet Count 193 K/mm3 (150-400); RDW Coefficient Variation 12.9 % (11.7-14.2); RDW Standard Deviation 42.7 fL (35.1-46.3); Red Blood Cell Count 4.31 M/mm3 (3.80-5.20); White Blood Cell Count 7.91 K/mm3 (4.00-11.30)
[2024-06-06 12:24] LABS: Bun/Creatinine Ratio 12.1 (12.0-20.0); Calcium, Blood 8.7 mg/dL (8.5-10.1); Creatinine, Blood 0.74 mg/dL (0.40-1.00); Potassium, Blood 4.1 mmol/L (3.5-5.5)
[2024-06-06 15:28] VITALS: BP 120/81
[2024-06-06] MEDS ORDERED: ALBU90OI INH (15:33)
[2024-06-06] MEDS ORDERED: GUAI600T33 PO (15:34)
[2024-06-06] MEDS ORDERED: ONDA4 PO (15:36)
[2024-06-06] MEDS ORDERED: PRED20 PO (15:37)
[2024-06-06] MEDS ORDERED: IMITREX50 M1 PO (15:38)
[2024-06-06] MEDS ORDERED: PredniSONE 20 MG Tab PO SCH (16:00)
--- NOTE | 2024-06-06 17:07 | NUR ---
DISCHARGE SUMMARY PT DC THIS SHIFT. DC INSTRUCTION GONE OVER WITH PT BY THIS CHRISTIANO. PT VERBILIZED UNDERSTANDING. PT WAS ESCORTED OUT TO PRIVATE VEHICLE VIA WHEELCHIAR BY DELIVERY TECH. MEDICATIONS WERE FAX TO [facility]ST[facility]URK[facility]. CRISTINA BURKETT CALLED TO CLAIRIFY PREDNISONE MEDICATION OF 40MG DAILY X5 DAYS.
== END 2024-06-06 16:04 | disposition home or self-care (01) | DRG 864 ==
LOC: ER 14:43 → MEDS 14:44 → ERHOLD 14:44 → MEDS 21:30
PROVIDERS: Family Medicine; Nurse Practitioner Acute Care; Student in an Organized Health Care Education/Training Program; ADMIT Internal Medicine
DX: R65.10 Systemic inflammatory response syndrome (SIRS) of non-infectious origin without acute organ dysfunction (principal); I47.10 Supraventricular tachycardia, unspecified; G43.109 Migraine with aura, not intractable, without status migrainosus; I49.3 Ventricular premature depolarization; F41.9 Anxiety disorder, unspecified; F32.A Depression, unspecified; M54.50 Low back pain, unspecified; R32 Unspecified urinary incontinence
CPT/HCPCS: 0202U; 36415; 70450; 71046; 72148; 74177; 76830; 80048; 80053; 81003; 81025; 82728; 83605; 83735; 84100; 84145; 84439; 84443; 84481; 84484; 85025; 85379; 85384; 85610; 85651; 85730; 86038; 86140; 86308; 86430; 86592; 87040; 87389; 87428-QW; 87799; 93306; 94640; 94664; 94760; 96361; 96374-59; 99285-25; A9270; G0378; J1885; J7030; J7120; J7512; Q0164; Q9967